=== PATIENT | male | born 1980 | race African-American/Black ===

== ENCOUNTER 2017-10-19 22:05 | Emergency (ER) | payer SELFPAY ==
[~2017-10-19] VITALS: Ht 182.9 cm; Wt 90.0 kg
[2017-10-19 22:10] VITALS: BP 131/84
[2017-10-19] MEDS ORDERED: METHOCARBAMOL 750 MG TABLET ONE (22:44)
[2017-10-19] MEDS ORDERED: KETOROLAC 30 MG/1 ML ONE (22:44)
[2017-10-19] MEDS ORDERED: KETOROLAC 30 MG/1 ML IM ONE (23:00)
[2017-10-19] MEDS ORDERED: METHOCARBAMOL 750 MG TABLET PO ONE (23:00)
== END 2017-10-19 23:23 | disposition home or self-care (01) ==
LOC: ED 22:31
DX: M62.830 Muscle spasm of back (principal); G89.29 Other chronic pain; E03.9 Hypothyroidism, unspecified
CPT/HCPCS: 96372; 99283; J1885